=== PATIENT | male | born 1980 | race Caucasian/White ===

== ENCOUNTER 2016-10-08 13:06 | Emergency (ER) | payer OTHER ==
[2016-10-08] MEDS ORDERED: Ketorolac INJ* 30 MG/ML 1 ML VIAL IV ONE (16:04)
[2016-10-08 16:29] LABS: Hematocrit 44 % (42-52); Hemoglobin 14.8 g/dl (14.0-18.0); Mean Corpuscular HGB Conc 34 g/dl (31-36); Mean Corpuscular Hemoglobin 28 pg (27-31); Mean Corpuscular Volume 83 fL (80-94); Mean Platelet Volume 8 um3 (7.4-10.4); Red Blood Count 5.28 10^6/ul (4.0-5.4); Red Cell Distribution Width 13 % (10.5-15); White Blood Count 6.8 10^3/ul (3.5-10.8)
[2016-10-08 17:00] LABS: Albumin 4.6 g/dL (3.2-5.2); BUN/Creatinine Ratio 14.4 (8-20); C Reactive Protein 1.13 mg/L (< 5.00); Calcium 9.4 mg/dL (8.6-10.3); EGFR African American 113.3 (>60); EGFR Non-African American 88.1 (>60); Globulin 2.5 g/dL (2-4); Potassium 3.7 mmol/L (3.5-5.0); Total Bilirubin 0.8 mg/dL (0.2-1.0); Total Protein 7.1 g/dL (6.4-8.9)
[2016-10-08 17:34] LABS: Urine Bilirubin Negative (Negative); Urine Glucose Negative (Negative); Urine Nitrite Negative (Negative)
[2016-10-08 18:40] VITALS: BP 145/93
--- NOTE | 2016-10-11 14:21 | ED ---
Evan Booker Benjamin, scribed for Xavi Rivera MD on 10/08/16 at 1630 . Abdominal Pain/Male - HPI Summary HPI Summary: 36yo male c/o right flank pain that also wraps around to his RUQ for 2 weeks. Pain has been progressively worsening. Describes the pain as if someone was punching him. Pain is constant and doesnt worsen with certain movements . Pt was dxed with gall stone last year. [facility] . - History of Current Complaint Chief Complaint: EDAbdPain Stated Complaint: RT SIDE ABD/FLANK PAIN Time Seen by Provider: 10/08/16 15:42 Hx Obtained From: Patient Onset/Duration: Sudden Onset Timing: Constant Severity Initially: Moderate Severity Currently: Moderate Pain Intensity: 6 Pain Scale Used: 0-10 Numeric Location: Discrete At: RUQ, Flank - right Character: Other: - "punching" Aggravating Factor(s): Nothing Alleviating Factor(s): Nothing Associated Signs And Symptoms: Positive: Negative - Allergies/Home Medications Allergies/Adverse Reactions: Allergies Allergy/AdvReac Type Severity Reaction Status Date / Time No Known Allergies Allergy Verified 05/22/15 19:59 PMH/Surg Hx/FS Hx/Imm Hx Previously Healthy: Yes Musculoskeletal History: Denies: Hx Scoliosis Neurological History: Reports: Hx Headaches Denies: Other Neuro Impairments/Disorders - Surgical History Surgery Procedure, Year, and Place: vasectomy - Immunization History Date of Tetanus Vaccine: 2010 Infectious Disease History: No Infectious Disease History: Denies: Traveled Outside the [place] in Last 30 Days - Family History Known Family History: Positive: Cardiac Disease, Hypertension - Social History Occupation: Employed Full-time Lives: With Family Alcohol Use: Occasionally Alcohol Amount: 2x/week Substance Use Type: Reports: None, Other Substance Use Comment - Amount & Last Used: tobacco Smoking Status (MU): Light Every Day Tobacco Smoker Type: Smokeless Tobacco Review of Systems Constitutional: Negative Eyes: Negative ENT: Negative Cardiovascular: Negative Respiratory: Negative Positive: Abdominal Pain Positive: flank pain - right Musculoskeletal: Negative Skin: Negative Neurological: Negative Psychological: Normal All Other Systems Reviewed And Are Negative: Yes Physical Exam Triage Information Reviewed: Yes Vital Signs On Initial Exam: Initial Vitals Temp Pulse Resp BP Pulse Ox 97.8 F 95 16 145/80 100 10/08/16 13:29 10/08/16 13:29 10/08/16 13:29 10/08/16 13:29 10/08/16 13:29 Vital Signs Reviewed: Yes Appearance: Positive: Well-Appearing, No Pain Distress, Well-Nourished Skin: Positive: Warm, Skin Color Reflects Adequate Perfusion, Dry Head/Face: Positive: Normal Head/Face Inspection Eyes: Positive: EOMI, JUAN ENT: Positive: Normal ENT inspection Neck: Positive: Supple, Nontender Respiratory/Lung Sounds: Positive: Clear to Auscultation, Breath Sounds Present Cardiovascular: Positive: RRR Abdomen Description: Positive: No Organomegaly, Soft, Other: - right lower lateral flank tenderness. Bowel Sounds: Positive: Present Musculoskeletal: Positive: Strength/ROM Intact Neurological: Positive: Sensory/Motor Intact, Alert, Oriented to Person Place, Time, CN Intact II-III Psychiatric: Positive: Normal, Affect/Mood Appropriate - [place] Coma Scale Coma Scale Total: 15 Diagnostics - Vital Signs Vital Signs Temp Pulse Resp BP Pulse Ox 10/08/16 15:23 97.8 F 83 16 158/88 100 10/08/16 13:29 97.8 F 95 16 145/80 100 - Laboratory Lab Results: Lab Results 10/08/16 10/08/16 10/08/16 Range/Units 16:08 16:08 16:08 WBC 6.8 (3.5-10.8) 10^3/ul RBC 5.28 (4.0-5.4) 10^6/ul Hgb 14.8 (14.0-18.0) g/dl Hct 44 (42-52) % MCV 83 (80-94) fL MCH 28 (27-31) pg MCHC 34 (31-36) g/dl RDW 13 (10.5-15) % Plt Count 261 (150-450) 10^3/ul MPV 8 (7.4-10.4) um3 Neut % (Auto) 56.2 (38-83) % Lymph % (Auto) 30.8 (25-47) % [place] % (Auto) 7.6 (1-9) % Eos % (Auto) 4.5 (0-6) % Baso % (Auto) 0.9 (0-2) % Absolute Neuts (auto) 3.8 (1.5-7.7) 10^3/ul Absolute Lymphs (auto) 2.1 (1.0-4.8) 10^3/ul Absolute Monos (auto) 0.5 (0-0.8) 10^3/ul Absolute Eos (auto) 0.3 (0-0.6) 10^3/ul Absolute Basos (auto) 0.1 (0-0.2) 10^3/ul Absolute Nucleated RBC 0.01 10^3/ul Nucleated RBC % 0.1 Sodium 136 (133-145) mmol/L Potassium 3.7 (3.5-5.0) mmol/L Chloride 101 (101-111) mmol/L Carbon Dioxide 28 (22-32) mmol/L Anion Gap 7 (2-11) mmol/L BUN 14 (6-24) mg/dL Creatinine 0.97 (0.67-1.17) mg/dL Est GFR ( Amer) 113.3 (>60) Est GFR (Non-Af Amer) 88.1 (>60) BUN/Creatinine Ratio 14.4 (8-20) Glucose 98 (70-100) mg/dL Lactic Acid 0.8 (0.5-2.0) mmol/L Calcium 9.4 (8.6-10.3) mg/dL Total Bilirubin 0.80 (0.2-1.0) mg/dL AST 23 (13-39) U/L ALT 38 (7-52) U/L Alkaline Phosphatase 50 (34-104) U/L C-Reactive Protein 1.13 (< 5.00) mg/L Total Protein 7.1 (6.4-8.9) g/dL Albumin 4.6 (3.2-5.2) g/dL Globulin 2.5 (2-4) g/dL Albumin/Globulin Ratio 1.8 (1-3) Lipase 28 (11.0-82.0) U/L Urine Color Urine Appearance Urine pH (5-9) Ur Specific [place] (1.010-1.030) Urine Protein (Negative) Urine Ketones (Negative) Urine Blood (Negative) Urine Nitrate (Negative) Urine Bilirubin (Negative) Urine Urobilinogen (Negative) Ur Leukocyte Esterase (Negative) Urine Glucose (Negative) 10/08/16 Range/Units 17:15 WBC (3.5-10.8) 10^3/ul RBC (4.0-5.4) 10^6/ul Hgb (14.0-18.0) g/dl Hct (42-52) % MCV (80-94) fL MCH (27-31) pg MCHC (31-36) g/dl RDW (10.5-15) % Plt Count (150-450) 10^3/ul MPV (7.4-10.4) um3 Neut % (Auto) (38-83) % Lymph % (Auto) (25-47) % [place] % (Auto) (1-9) % Eos % (Auto) (0-6) % Baso % (Auto) (0-2) % Absolute Neuts (auto) (1.5-7.7) 10^3/ul Absolute Lymphs (auto) (1.0-4.8) 10^3/ul Absolute Monos (auto) (0-0.8) 10^3/ul Absolute Eos (auto) (0-0.6) 10^3/ul Absolute Basos (auto) (0-0.2) 10^3/ul Absolute Nucleated RBC 10^3/ul Nucleated RBC % Sodium (133-145) mmol/L Potassium (3.5-5.0) mmol/L Chloride (101-111) mmol/L Carbon Dioxide (22-32) mmol/L Anion Gap (2-11) mmol/L BUN (6-24) mg/dL Creatinine (0.67-1.17) mg/dL Est GFR ( Amer) (>60) Est GFR (Non-Af Amer) (>60) BUN/Creatinine Ratio (8-20) Glucose (70-100) mg/dL Lactic Acid (0.5-2.0) mmol/L Calcium (8.6-10.3) mg/dL Total Bilirubin (0.2-1.0) mg/dL AST (13-39) U/L ALT (7-52) U/L Alkaline Phosphatase (34-104) U/L C-Reactive Protein (< 5.00) mg/L Total Protein (6.4-8.9) g/dL Albumin (3.2-5.2) g/dL Globulin (2-4) g/dL Albumin/Globulin Ratio (1-3) Lipase (11.0-82.0) U/L Urine Color Yellow Urine Appearance Clear Urine pH 6.0 (5-9) Ur Specific [place] 1.021 (1.010-1.030) Urine Protein Negative (Negative) Urine Ketones Negative (Negative) Urine Blood Negative (Negative) Urine Nitrate Negative (Negative) Urine Bilirubin Negative (Negative) Urine Urobilinogen Negative (Negative) Ur Leukocyte Esterase Negative (Negative) Urine Glucose Negative (Negative) Result Diagrams: 10/08/16 16:08 10/08/16 16:08 Lab Statement: Any lab studies that have been ordered have been reviewed, and results considered in the medical decision making process. Abdominal Pain Fem Course/Dx - Course Course Of Treatment: Mr. Jackson presented with right flank pain that was reproducible to palpation. He has a Hx of gallstones but labs were normal and it is unlikely that he has acute cholecystitis. U/A was also negative. I will treat him for his chest wall pain and see if he improves. - Diagnoses Provider Diagnoses: Chest wall pain Discharge - Discharge Plan Condition: Stable Disposition: HOME Patient Education Materials: Chest Wall Pain (ED) Referrals: No Primary Care Phys,NOPCP [Primary Care Provider] - Additional Instructions: PLEASE FOLLOW UP WITH YOUR PRIMARY CARE PHYSICIAN. The documentation as recorded by the Evan coreas Benjamin accurately reflects the service I personally performed and the decisions made by me, Xavi Rivera MD.
== END 2016-10-08 18:38 | disposition home or self-care (01) ==
LOC: ED 13:06
DX: R07.89 Other chest pain (principal); R10.84 Generalized abdominal pain; F17.210 Nicotine dependence, cigarettes, uncomplicated
CPT/HCPCS: 36415; 80053; 81003; 83605; 83690; 85025; 86140; 96374; 99282; J1885

== ENCOUNTER 2016-12-07 12:31 | Emergency (ER) | payer OTHER ==
[2016-12-07] MEDS ORDERED: Ibuprofen TAB* 600 MG PO ONE (13:24)
--- NOTE | 2016-12-07 14:17 | RAD ---
Indication: Back pain. CT of the lumbar spine was obtained in the axial plane. Sagittal and coronal reconstructed images were obtained. The vertebral bodies appear normal in height. No compression fracture is noted. At L5-S1 there is minimal broad-based protrusion flattening the epidural fat. No encroachment upon the thecal sac is noted. Mild facet arthropathy is noted. At L4-L5 broad-based protrusion flattens the thecal sac. Mild facet arthropathy is noted. No central or foraminal stenosis At L3-L4 minimal broad-based protrusion flattens the thecal sac. No central foraminal stenosis is noted. At L2-L3 and L1-L2 no disc protrusion is identified. IMPRESSION: NO FRACTURE IS IDENTIFIED. DEGENERATIVE DISC DISEASE AT L4-L5 AND L5-S1.
[2016-12-07 15:05] VITALS: BP 139/69
--- NOTE | 2016-12-07 15:25 | ED ---
Corina Booker Salem, scribed for Xavi Rivera MD on 12/07/16 at 1330 . Back Pain - HPI Summary HPI Summary: Patient is a 36 y/o M who presents to the ED with upper lumbar back pain since approximately one hour ago. He reports that he has a hx of back pain, but that pain is dissimilar to previous episodes. He also reports sudden onset with no trauma. He states he can ambulate, move all extremities, and move his neck without pain; however, he is not able to bend forward. Pt denies abd pain. NKDA. - History of Current Complaint Chief Complaint: EDBackInjuryPain Stated Complaint: BACK PAIN Time Seen by Provider: 12/07/16 12:42 Hx Obtained From: Patient Onset/Duration: Sudden Onset, Lasting Minutes, Still Present Onset/Duration: Started Minutes Ago, Atraumatic, Still Present Timing: Constant Back Pain Location: Is Discrete @ - Upper lumbar back. Severity Initially: Moderate Severity Currently: Moderate Pain Intensity: 8 Pain Scale Used: 0-10 Numeric Character: Sharp Aggravating Symptom(s): Movement, Bending Alleviating Symptom(s): Rest, Position - Recumbent. Associated Signs And Symptoms: Positive: Negative. Negative: Abdominal Pain - Allergies/Home Medications Allergies/Adverse Reactions: Allergies Allergy/AdvReac Type Severity Reaction Status Date / Time No Known Allergies Allergy Verified 05/22/15 19:59 PMH/Surg Hx/FS Hx/Imm Hx Musculoskeletal History: Denies: Hx Scoliosis Neurological History: Reports: Hx Headaches Denies: Other Neuro Impairments/Disorders - Surgical History Surgery Procedure, Year, and Place: vasectomy - Immunization History Date of Tetanus Vaccine: 2010 Infectious Disease History: No Infectious Disease History: Denies: Traveled Outside the [place] in Last 30 Days - Family History Known Family History: Positive: Cardiac Disease, Hypertension - Social History Alcohol Use: Occasionally Alcohol Amount: 2x/week Substance Use Type: Reports: None, Other Substance Use Comment - Amount & Last Used: tobacco Smoking Status (MU): Light Every Day Tobacco Smoker Type: Smokeless Tobacco Review of Systems ENT: Negative, Other - Able to move neck. Negative: Abdominal Pain Musculoskeletal: Other - Able to move all extremities. Positive: Other - Upper lumbar back pain. All Other Systems Reviewed And Are Negative: Yes Physical Exam Triage Information Reviewed: Yes Vital Signs On Initial Exam: Initial Vitals Temp Pulse Resp BP Pulse Ox 97.7 F 111 20 148/100 99 12/07/16 12:32 12/07/16 12:32 12/07/16 12:32 12/07/16 12:32 12/07/16 12:32 Vital Signs Reviewed: Yes Appearance: Positive: Well-Appearing, No Pain Distress, Obese Skin: Positive: Warm, Skin Color Reflects Adequate Perfusion, Dry Head/Face: Positive: Normal Head/Face Inspection Eyes: Positive: Normal Neck: Positive: Supple, Nontender Respiratory/Lung Sounds: Positive: Clear to Auscultation, Breath Sounds Present Cardiovascular: Positive: RRR Abdomen Description: Positive: Nontender, Soft Musculoskeletal: Positive: Other - Tender midline mid-back. Positive leg straight both sides. Neurological: Positive: Normal Psychiatric: Positive: Normal, Affect/Mood Appropriate - [place] Coma Scale Coma Scale Total: 15 Diagnostics - Vital Signs Vital Signs Temp Pulse Resp BP Pulse Ox 12/07/16 12:35 97.7 F 115 20 148/100 99 12/07/16 12:32 97.7 F 111 20 148/100 99 - Laboratory Lab Statement: Any lab studies that have been ordered have been reviewed, and results considered in the medical decision making process. - CT LUMBAR SPINE CT Interpretation Completed By: Radiologist - IMPRESSION: NO FRACTURE IS IDENTIFIED. DEGENERATIVE DISC DISEASE AT L4-L5 AND L5-S1. Re-Evaluation - Re-Evaluation First Eval Re-Evaluation Time: 14:43 Comment: Informed pt of imaging result and of plan. He is agreeable. Back Pain Course/Dx - Course Course Of Treatment: Mr. Jackson has had a lot of problems with his back but unusually it started to hurt today suddenly without any obvious trauma (in the same location as usual). He was afebrile and tender to palpation. CT was negative and I recommended that he treat it symptomatically for a couple days and F/U if not improving. - Diagnoses Provider Diagnoses: Low back pain Discharge - Discharge Plan Condition: Stable Disposition: HOME Patient Education Materials: Low Back Strain (ED) Referrals: Modesto Salomon MD [Medical Doctor] - Additional Instructions: Please take the Ibuprofen and Cyclobenzaprine that you have at home. Follow up with Dr. Salomon if symptoms are not improved in a few days. The documentation as recorded by the Corina coreas Salem accurately reflects the service I personally performed and the decisions made by me, Xavi Rivera MD.
== END 2016-12-07 14:58 | disposition home or self-care (01) ==
LOC: ED 12:31
DX: M54.5 Low back pain (principal); F17.210 Nicotine dependence, cigarettes, uncomplicated
CPT/HCPCS: 72131; 99281; A9270-GY

== ENCOUNTER 2017-04-02 14:58 | Emergency (ER) | payer OTHER ==
[2017-04-02 15:31] VITALS: BP 127/86
--- NOTE | 2017-04-02 16:29 | UC ---
Skin Complaint HPI - HPI Summary HPI Summary: Patient presents to the with left 4th toe erythema and swelling with warmth with red streaking throughout the dorsum of the right left foot x 2 days. There is a small puncture wound to the toe which patient states he created after thinking there was an ingrown hair across the toe. Denies hx or MRSA. Denies fevers, sweats or chills. - History of Current Complaint Chief Complaint: UCSkin Time Seen by Provider: 04/02/17 15:49 Stated Complaint: SOFT TISSUE COMPLAINT Hx Obtained From: Patient Onset/Duration: Sudden Onset Skin Exposure Onset/Duration: Minutes Ago Timing: Constant Onset Severity: Mild Current Severity: Mild Pain Intensity: 5 Pain Scale Used: 0-10 Numeric Location: Discrete - 4th left toe Character: Swelling Aggravating Factor(s): Touch Alleviating Factor(s): Nothing Associated Signs & Symptoms: Positive: Bruising, Red Streaks, Joint Swelling - Allergy/Home Medications Allergies/Adverse Reactions: Allergies Allergy/AdvReac Type Severity Reaction Status Date / Time No Known Allergies Allergy Verified 04/02/17 15:31 Home Medications: Home Medications Rx Meds - Not Taking* 04/02/17 [History] Review of Systems Constitutional: Negative Skin: Other - small puncture wound to the dorsum of the 4th left toe with erythema and warmth extending into the dorsum of the foot - pain with palpation ENT: Negative Respiratory: Negative Cardiovascular: Negative Neurovascular: Negative Musculoskeletal: Negative Psychological: Negative Is Patient Immunocompromised?: No All Other Systems Reviewed And Are Negative: Yes PMH/Surg Hx/FS Hx/Imm Hx Previously Healthy: Yes - Surgical History Surgical History: Yes Surgery Procedure, Year, and Place: vasectomy - Family History Known Family History: Positive: Cardiac Disease, Hypertension - Social History Occupation: Employed Full-time Lives: With Family Alcohol Use: Occasionally Alcohol Amount: 2x/week Substance Use Type: None Substance Use Comment - Amount & Last Used: tobacco Smoking Status (MU): Light Every Day Tobacco Smoker Type: Cigarettes Amount Used/How Often: 3/4 PPD - Immunization History Most Recent Tetanus Shot: less then 5 yrs Physical Exam Triage Information Reviewed: Yes Appearance: Well-Appearing, Well-Nourished Vital Signs: Initial Vital Signs Temp 98 F 04/02/17 15:27 Pulse 102 04/02/17 15:27 Resp 16 04/02/17 15:27 BP 127/86 04/02/17 15:27 Pulse Ox 99 04/02/17 15:27 Eyes: Positive: Conjunctiva Clear Neck exam: Normal Neck: Positive: Supple, No Lymphadenopathy Respiratory Exam: Normal Respiratory: Positive: Chest non-tender Cardiovascular Exam: Normal Cardiovascular: Positive: RRR Neurological Exam: Normal Neurological: Positive: Alert Psychological: Positive: Normal Response To Family, Age Appropriate Behavior Skin: Positive: Other - small puncture wound to the dorsum of the 4th left toe with erythema and warmth extending into the dorsum of the foot - pain with palpation Course/Dx - Course Course Of Treatment: small puncture wound to the dorsum of the 4th left toe with erythema and warmth extending into the dorsum of the foot - pain with palpation. Patient is given bactrim x 5 days. No area of fluctuance which would need to be I and D'd. Patient is given care instructions and is OK with discharge. - Differential Diagnoses - Skin Complaint Differential Diagnoses: Other - puncture wound, cellulitis, skin infection - Diagnoses Provider Diagnoses: Cellulitis Discharge - Discharge Plan Condition: Stable Disposition: HOME Prescriptions: Sulfamethox/Trimethoprim DS* [Bactrim DS 800/160 TAB*] 1 tab PO BID #10 tab MDD 2 Patient Education Materials: Cellulitis (ED) Referrals: Modesto Salomon MD [Primary Care Provider] - Additional Instructions: Take antibiotics as prescribed Soak in warm soapy water twice daily If symptoms become worse or you develop streaking up the leg - return to the
== END 2017-04-02 16:24 | disposition home or self-care (01) ==
LOC: UCEAST 14:58
DX: L03.116 Cellulitis of left lower limb (principal); F17.210 Nicotine dependence, cigarettes, uncomplicated
CPT/HCPCS: 99212; G0463

== ENCOUNTER 2017-08-25 15:09 | Emergency (ER) | payer OTHER ==
[2017-08-25] MEDS ORDERED: Ibuprofen TAB* 600 MG PO ONE (15:48)
[2017-08-25 16:14] LABS: ABS Basophils 0 10^3/ul (0-0.2); ABS Eosinophils 0 10^3/ul (0-0.6); ABS Lymphocytes 0.6 10^3/ul (1.0-4.8); ABS Monocytes 0.5 10^3/ul (0-0.8); ABS Neutrophils 3.9 10^3/ul (1.5-7.7); ABS Nucleated RBC 0 10^3/ul; Eosinophil % 0.5 % (0-6); Hematocrit 41 % (42-52); Hemoglobin 14.1 g/dl (14.0-18.0); Lymphocyte % 11.5 % (25-47); Mean Corpuscular HGB Conc 34 g/dl (31-36); Mean Corpuscular Hemoglobin 29 pg (27-31); Mean Corpuscular Volume 85 fL (80-94); Mean Platelet Volume 8 um3 (7.4-10.4); Nucleated Red Blood Cells % 0; Platelet Count 211 10^3/ul (150-450); Red Blood Count 4.87 10^6/ul (4.0-5.4); Red Cell Distribution Width 13 % (10.5-15); White Blood Count 5.1 10^3/ul (3.5-10.8)
[2017-08-25 16:32] LABS: EGFR Non-African American 76.5 (>60)
[2017-08-25] MEDS ORDERED: Iohexol 300* (CONTRAST) 10 ML SDV IV ONE (16:35)
--- NOTE | 2017-08-25 17:13 | RAD ---
INDICATION: Neck swelling evaluate for abscess. COMPARISON: There are no prior studies available for comparison. TECHNIQUE: A CT scan of the neck was performed with intravenous contrast following intravenous injection of 50 ml of Omnipaque 300 nonionic contrast. Contiguous axial sections were obtained from the skull base through the lung apices. Images were reconstructed in the coronal and sagittal planes. FINDINGS: There is diffuse soft tissue swelling present within the neck on the right side. This extends from the level of the parotid gland inferiorly to the level of the thyroid gland. There is effacement of the right piriform sinus. The epiglottis appears within normal limits. The retropharyngeal soft tissues appear normal. The right submandibular gland is enlarged and hyperdense suggestive of sialadenitis. No calculus is seen. There are couple mildly prominent submandibular lymph nodes present on the right side measuring up to 0.8 cm in transverse dimension. No abscess is seen. The parotid glands appear to be within normal limits. The thyroid gland appears normal in size without significant focal abnormality. The lung apices appear clear. There is minimal mucosal thickening within the ethmoid and maxillary sinuses. The sinuses and mastoid air cells otherwise appear clear. No significant focal osseous abnormality is seen. IMPRESSION: THERE IS DIFFUSE SOFT TISSUE SWELLING IN THE NECK ON THE RIGHT SIDE WHICH APPEARS TO BE SECONDARY TO RIGHT SUBMANDIBULAR SIALADENITIS. NO ABSCESS IS SEEN.
[2017-08-25] MEDS ORDERED: predniSONE TAB* 20 MG PO ONE (18:05)
--- NOTE | 2017-08-25 18:10 | ED ---
Darwin Booker Thomas, scribed for Xavi Rivera MD on 08/25/17 at 1540 . Neck Pain - HPI Summary HPI Summary: The patient is a 37 year old male complaining of swelling to the right side of his neck that began yesterday at 23:00. He describes the pain as soreness. The pain is rated 3/10. He is febrile. - History of Current Complaint Chief Complaint: EDGeneral Stated Complaint: SWELLING IN NECK Time Seen by Provider: 08/25/17 15:29 Hx Obtained From: Patient Onset/Duration Of Injury/Symptoms: Days - 1 Mechanism Of Injury: No Known Trauma Timing: Constant, Lasting Days - 1 Onset/Duration: Still Present Severity Currently: Mild Pain Intensity: 3 Pain Scale Used: 0-10 Numeric Location: Discrete At: - right side of neck Aggravating Factors: Nothing Alleviating Factors: Nothing Associated Signs & Symptoms: Positive: Fever - Allergies/Home Medications Allergies/Adverse Reactions: Allergies Allergy/AdvReac Type Severity Reaction Status Date / Time No Known Allergies Allergy Verified 04/02/17 15:31 PMH/Surg Hx/FS Hx/Imm Hx Musculoskeletal History: Denies: Hx Scoliosis Sensory History: Denies: Hx Legally Blind EENT History: Denies: Hx Deafness Neurological History: Reports: Hx Headaches Denies: Other Neuro Impairments/Disorders - Surgical History Surgery Procedure, Year, and Place: vasectomy - Immunization History Date of Tetanus Vaccine: 2010 Infectious Disease History: No Infectious Disease History: Denies: Traveled Outside the [place] in Last 30 Days - Family History Known Family History: Positive: Cardiac Disease, Hypertension - Social History Alcohol Use: Occasionally Alcohol Amount: 2x/week Substance Use Type: Reports: None Substance Use Comment - Amount & Last Used: tobacco Smoking Status (MU): Light Every Day Tobacco Smoker Type: Cigarettes Amount Used/How Often: 3/4 PPD Review of Systems Positive: Fever Positive: Other - Right-sided neck swelling All Other Systems Reviewed And Are Negative: Yes Physical Exam - Summary Physical Exam Summary: Appearance: The patient is well-nourished in no acute distress and in no acute pain. Skin: The skin is warm and dry and skin color reflects adequate perfusion. HEENT: The head is normocephalic and atraumatic. The pupils are equal and reactive. The conjunctivae are clear and without drainage. Nares are patent and without drainage. Mouth reveals moist mucous membranes and the throat is without erythema. It looks like there could be some discharge at the open of the right mandibular duct, but I cannot express any discharge when I massage it. The external ears are intact. The ear canals are patent and without drainage. The tympanic membranes are intact. Neck: The right mandibular area is firm, indurated, and swollen. It looks like there could be some discharge at the open of the mandibular duct, but I cannot express any discharge when I massage it. The neck is supple with full range of motion and non-tender. There are no carotid bruits. There is no neck vein distension. Respiratory: Chest is non-tender. Lungs are clear to auscultation and breath sounds are symmetrical and equal. Cardiovascular: Heart is regular rate and rhythm. There is no murmur or rub auscultated. There is no peripheral edema and pulses are symmetrical and equal. Abdomen: The abdomen is soft and non-tender. There are normal bowel sounds heard in all four quadrants and there is no organomegaly palpated. Musculoskeletal: There is no back tenderness noted. Extremities are non-tender with full range of motion. There is good capillary refill. There is no peripheral edema or calf tenderness elicited. Neurological: Patient is alert and oriented to person, place and time. The patient has symmetrical motor strength in all four extremities. Cranial nerves are grossly intact. Deep tendon reflexes are symmetrical and equal in all four extremities. Psychiatric: The patient has an appropriate affect and does not exhibit any anxiety or depression. Triage Information Reviewed: Yes Vital Signs On Initial Exam: Initial Vitals Temp Pulse Resp BP Pulse Ox 102.0 F 114 18 129/91 100 08/25/17 15:22 08/25/17 15:22 08/25/17 15:22 08/25/17 15:22 08/25/17 15:22 Vital Signs Reviewed: Yes Diagnostics - Vital Signs Vital Signs Temp Pulse Resp BP Pulse Ox 08/25/17: 102.0 F 114 18 129/91 100 - Laboratory Lab Results: Lab Results 08/25/17 08/25/17 Range/Units 16:00 16:00 WBC 5.1 (3.5-10.8) 10^3/ul RBC 4.87 (4.0-5.4) 10^6/ul Hgb 14.1 (14.0-18.0) g/dl Hct 41 L (42-52) % MCV 85 (80-94) fL MCH 29 (27-31) pg MCHC 34 (31-36) g/dl RDW 13 (10.5-15) % Plt Count 211 (150-450) 10^3/ul MPV 8 (7.4-10.4) um3 Neut % (Auto) 77.5 (38-83) % Lymph % (Auto) 11.5 L (25-47) % [place] % (Auto) 9.8 H (1-9) % Eos % (Auto) 0.5 (0-6) % Baso % (Auto) 0.7 (0-2) % Absolute Neuts (auto) 3.9 (1.5-7.7) 10^3/ul Absolute Lymphs (auto) 0.6 L (1.0-4.8) 10^3/ul Absolute Monos (auto) 0.5 (0-0.8) 10^3/ul Absolute Eos (auto) 0 (0-0.6) 10^3/ul Absolute Basos (auto) 0 (0-0.2) 10^3/ul Absolute Nucleated RBC 0 10^3/ul Nucleated RBC % 0 Sodium 136 (133-145) mmol/L Potassium 3.8 (3.5-5.0) mmol/L Chloride 102 (101-111) mmol/L Carbon Dioxide 26 (22-32) mmol/L Anion Gap 8 (2-11) mmol/L BUN 8 (6-24) mg/dL Creatinine 1.09 (0.67-1.17) mg/dL Est GFR ( Amer) 98.4 (>60) Est GFR (Non-Af Amer) 76.5 (>60) BUN/Creatinine Ratio 7.3 L (8-20) Glucose 105 H (70-100) mg/dL Calcium 9.3 (8.6-10.3) mg/dL Total Bilirubin 0.70 (0.2-1.0) mg/dL AST 26 (13-39) U/L ALT 38 (7-52) U/L Alkaline Phosphatase 47 (34-104) U/L C-Reactive Protein 12.27 H (< 5.00) mg/L Total Protein 7.1 (6.4-8.9) g/dL Albumin 4.4 (3.2-5.2) g/dL Globulin 2.7 (2-4) g/dL Albumin/Globulin Ratio 1.6 (1-3) Result Diagrams: 08/25/17 16:00 08/25/17 16:00 Lab Statement: Any lab studies that have been ordered have been reviewed, and results considered in the medical decision making process. - CT CT Neck CT Interpretation: Positive (See Comments) - THERE IS DIFFUSE SOFT TISSUE SWELLING IN THE NECK ON THE RIGHT SIDE WHICH APPEARS TO BE SECONDARY TO RIGHT SUBMANDIBULAR SIALADENITIS. NO ABSCESS IS SEEN. Dr. Rivera has reviewed this report. CT Interpretation Completed By: Radiologist Neck Course/Dx - Course Course Of Treatment: Mr. Jackson presented with what seemed to be a sialadenitis. I was concerned though as he had a fever of 101.7. Labs were OK and CT showed only the adenitis. I spoke with Dr. Marsh who requested to see the patient tomorrow and recommended a dose of prednisone and antibiotics. - Diagnoses Provider Diagnoses: Sialadenitis - Physician Notifications Discussed Care Of Patient With: Erickson Marsh Time Discussed With Above Provider: 18:02 Instructed by Provider To: Other - Dr. Marsh, ENT, reports the patient can be discharged with follow up at his office tomorrow. He wants the patient to be put onto antibiotics. Discharge - Discharge Plan Condition: Stable Disposition: HOME Prescriptions: Amoxicillin/Clavulanate TAB* [Augmentin TAB 875*] 875 mg PO BID #20 tab Patient Education Materials: Sialoadenitis (ED) Referrals: Erickson Marsh MD [Medical Doctor] - 08/26/17 Additional Instructions: Call tomorrow morning for an appointment with Dr. Marsh ENT. Return to the emergency department for any new or worsening symptoms. The documentation as recorded by the Darwin coreas Thomas accurately reflects the service I personally performed and the decisions made by me, Xavi Rivera MD.
[2017-08-25 18:17] VITALS: BP 119/72
== END 2017-08-25 18:16 | disposition home or self-care (01) ==
LOC: ED 15:09
DX: K11.20 Sialoadenitis, unspecified (principal); R50.9 Fever, unspecified; F17.210 Nicotine dependence, cigarettes, uncomplicated
CPT/HCPCS: 36415; 70491; 80053; 85025; 86140; 87040; 99283; A9270-GY; J7512; Q9967